=== PATIENT | male | born 1960 | race Caucasian/White ===

== ENCOUNTER 2017-03-30 11:21 | Emergency (ER) | payer BC ==
--- NOTE | 2017-03-30 12:21 | ED Physician Documentation ---
PD HPI URI - Stated complaint Stated Complaint: COUGH - Chief complaint Chief Complaint: Resp - History obtained from History obtained from: Patient - History of Present Illness Timing - onset: Other (56yo male with 2 days of illness, started with nasal drainage and mild sore throat. Now mostly productive cough, but no dyspnea or fevers.No recent travel, no history of heart or lung problems. His 18-month- old grandson is sick with a URI.) Review of Systems Constitutional: denies: Fever, Chills, Myalgias, Fatigue Ears: denies: Ear pain Nose: reports: Rhinorrhea / runny nose. denies: Sinus pressure / pain Respiratory: reports: Cough. denies: Dyspnea GI: denies: Abdominal Pain PD PAST MEDICAL HISTORY - Past Medical History Cardiovascular: None Respiratory: None Neuro: None Endocrine/Autoimmune: None GI: None : None HEENT: None Psych: None Musculoskeletal: None Derm: None - Past Surgical History Past Surgical History: Yes General: Appendectomy Ortho: Shoulder arthroplasty - Present Medications Home Medications: Ambulatory Orders Medication Instructions Recorded Confirmed Azithromycin [Zithromax] 250 mg PO DAILY #6 tablet 03/30/17 Guaifenesin/Pseudoephedrne HCl 1 each PO BID PRN #20 tab.er.12h 03/30/17 [Mucinex D ER 600-60 mg Tablet] Lisinopril 1 tab PO DAILY 03/30/17 03/30/17 Sertraline [Zoloft] 25 mg PO DAILY 03/30/17 03/30/17 Simvastatin 1 tab PO DAILY 03/30/17 03/30/17 guaiFENesin/CODEINE [Robitussin AC] 5 - 10 ml PO Q6H PRN #120 ml 03/30/17 - Allergies Allergies/Adverse Reactions: Allergies Allergy/AdvReac Type Severity Reaction Status Date / Time No Known Drug Allergies Allergy Verified 03/30/17 11:29 - Social History Does the pt smoke?: No Smoking Status: Never smoker Does the pt drink ETOH?: No Does the pt have substance abuse?: No - Immunizations Immunizations are current?: Yes - POLST Patient has POLST: No PD ED PE NORMAL - Vitals Vital signs reviewed: Yes - General General: Alert and oriented X 3, No acute distress - HEENT HEENT: PERRL, EOMI, Ears normal, Moist mucous membranes, Pharynx benign - Neck Neck: Supple, no meningeal sign, No bony TTP - Cardiac Cardiac: RRR, No murmur - Respiratory Respiratory: No respiratory distress, Clear bilaterally - Abdomen Abdomen: Non tender - Derm Derm: No rash - Extremities Extremities: No edema, No calf tenderness / cord - Psych Psych: Normal mood, Normal affect Results - Vitals Vitals: Vital Signs - 24 hr 03/30/17 11:26 Temperature 36.4 C L Heart Rate 78 Respiratory 16 Rate Blood Pressure 116/73 O2 Saturation 99 Oxygen O2 Source Room air - Rads (name of study) 2v chest Radiology: EMP read contemporaneously (Minimal elevation of the left hemidiaphragm of unclear significance, clear lungs.) PD MEDICAL DECISION MAKING - ED course ED course: 56-year-old visiting from out of town with 2 days of productive cough, no current evidence of a bacterial illness. Given that he is visiting from out of town and does not have good follow-up he is given A [id number] prescription for Zithromax as well as symptomatic relief. Departure - Departure Disposition: 01 Home, Self Care Clinical Impression: Cough Condition: Good Record reviewed to determine appropriate education?: Yes Instructions: ED Viral Syndrome Prescriptions: Azithromycin [Zithromax] 250 mg PO DAILY #6 tablet guaiFENesin/CODEINE [Robitussin AC] 5 - 10 ml PO Q6H PRN #120 ml PRN Reason: Cough Guaifenesin/Pseudoephedrne HCl [Mucinex D ER 600-60 mg Tablet] 1 each PO BID PRN #20 tab.er.12h PRN Reason: congestion Comments: As discussed, I would not start the antibiotic (Zithromax/azithromycin) at this time. You should start it in a few days if not improving or if you are worse or running a fever become short of breath. Do not drink or drive while taking prescription cough syrup.
--- NOTE | 2017-03-30 12:56 | XRAY Preliminary Report ---
Exam: XR CHEST 2 VIEW PA/LAT IMPRESSION: There is minimal elevation of the left diaphragm of uncertain significance. Correlate cli nically for possible phrenic nerve palsy. No acute findings in other regards. [facility] SITE ID: [id number]
--- NOTE | 2017-03-30 12:59 | XRAY Report ---
EXAM: CHEST RADIOGRAPHY EXAM DATE: 03/30/2017 12:52 PM. CLINICAL HISTORY: Cough. COMPARISON: None. TECHNIQUE: 2 views. FINDINGS: Lungs/Pleura: No focal opacities evident. No pleural effusion. No pneumothorax. There is minimal elev ation of the left diaphragm. Mediastinum: Heart and mediastinal contours appear otherwise unremarkable. Other: None. IMPRESSION: There is minimal elevation of the left diaphragm of uncertain significance. Correlate cli nically for possible phrenic nerve palsy. No acute findings in other regards. [facility] Referring Provider Line: [phone] SITE ID: [id number]
[2017-03-30 13:05] VITALS: BP 120/76
== END 2017-03-30 13:05 | disposition home or self-care (01) ==
LOC: ED 11:21
DX: R05 Cough (principal)
CPT/HCPCS: 71020; 99283